=== PATIENT | female | born 2000 | race Caucasian/White ===

== ENCOUNTER → 2019-01-20 | Outpatient (CLI) | payer OTHER ==
--- NOTE | 2019-01-20 15:06 | KCIC ---
Complete abdomen ultrasound HISTORY: Abdominal pain. FINDINGS: Pancreas appears unremarkable. Inferior vena cava is visualized. Abdominal aorta is nonaneurysmal. Liver is not enlarged. Right kidney measures 11.0 cm without hydronephrosis. No evidence of gallstone or gallbladder wall thickening. No significant biliary ductal dilatation. The spleen is not enlarged. Right kidney measures 11.0 cm longitudinal without hydronephrosis. IMPRESSION: No significant sonographic abnormality. Electronically signed by: Frankie aHro MD (01/20/2019 3:03 PM) [facility]
== END | disposition home or self-care (01) ==
LOC: KCIC US 07:50
PROVIDERS: ATTEND Physician Assistant
DX: R10.9 Unspecified abdominal pain (principal)
CPT/HCPCS: 76700